=== PATIENT | female | born 1975 | race Caucasian/White ===

== ENCOUNTER 2022-12-24 10:05 | Emergency (ER) | payer MEDICAID ==
[~2022-12-24] VITALS: Ht 157.5 cm; Wt 64.0 kg
[2022-12-24 10:16] VITALS: BP 165/84; PULSE 76; RESP 18; TEMP 98.7; O2SAT 98
[2022-12-24] MEDS ORDERED: TOPUD PO (10:41)
== END 2022-12-24 11:54 | disposition home or self-care (01) ==
LOC: ER 10:05
DX: S00.93XA Contusion of unspecified part of head, initial encounter (principal); W18.39XA Other fall on same level, initial encounter; Y93.89 Activity, other specified; Y92.89 Other specified places as the place of occurrence of the external cause; Y99.8 Other external cause status
CPT/HCPCS: 99284